=== PATIENT | male | born 1990 | race Asian ===

== ENCOUNTER → 2017-03-25 | Outpatient (CLI) | payer OTHER ==
--- NOTE | 2017-03-25 13:34 | DIAGNOSTIC IMAGING REPORT ---
THYROID/NECK ULTRASOUND CLINICAL HISTORY: LUMP ON RT SIDE OF NECK COMPARISON STUDY: None. TECHNIQUE: Sonography of the thyroid gland and neck at site of palpable abnormality was performed. FINDINGS: No sonographic abnormality was identified within the right supraclavicular region at site of palpable abnormality. Specifically, no enlarged lymph node or mass was identified. The right thyroid lobe measures 4.2 x 1.3 x 1.8 cm and the left measures 3.9 x 1.4 x 1.4 cm. A few tiny colloid cysts are noted. There are no suspicious thyroid nodules. IMPRESSION: 1. No sonographic abnormality within the right supraclavicular region at site of palpable abnormality. 2. No suspicious thyroid nodules. A few tiny colloid cysts. Electronically signed by: Bart Lazo M.D. 03/25/2017 1:33 PM Dictated Date/Time: 03/25/2017 1:26 PM
== END | disposition home or self-care (01) ==
PROVIDERS: ATTEND Family Medicine
DX: E04.2 Nontoxic multinodular goiter (principal)